=== PATIENT | male | born 1980 | race Caucasian/White ===

== ENCOUNTER 2018-01-08 21:35 | Emergency (ER) | payer MEDICAID ==
[~2018-01-08] VITALS: Ht 177.8 cm; Wt 57.2 kg
[2018-01-08 21:40] VITALS: BP_SYST 146
--- NOTE | 2018-01-08 21:45 | NUR ---
Patient triaged and placed in waiting room. VSS and patient appears in no acute distress at this time. Accompanied by self, awaiting available bed, and MD notified of need for MSE.
--- NOTE | 2018-01-08 22:00 | NUR ---
Pt AAOX 5 came in with a complaint of vomiting from smoking marijuana today, Pt stated he has been vomiting for the past 7 days. Safety precaution observed, vomit bag provided. Will continue to monitor Pt.
--- NOTE | 2018-01-08 22:34 | NUR ---
Pt left without being seen by the doctor, refused to sign AMA form.
== END 2018-01-08 22:34 | disposition left against medical advice (07) ==
LOC: SED 21:35
DX: R10.9 Unspecified abdominal pain (principal); R11.10 Vomiting, unspecified; Z53.21 Procedure and treatment not carried out due to patient leaving prior to being seen by health care provider